=== PATIENT | female | born 1955 | race Caucasian/White ===

== ENCOUNTER 2016-08-05 09:52 | Emergency (ER) | payer OTHER ==
[~2016-08-05] VITALS: Ht 162.6 cm; Wt 46.7 kg
--- NOTE | 2016-08-05 10:01 | ED GENERAL ADULT ---
History of Present Illness General Chief Complaint: Palpitations Stated Complaint: PALPITATIONS X 2 WEEKS, GETTING WORSE Source: patient Exam Limitations: no limitations Vital Signs & Intake/Output Vital Signs & Intake/Output Vital Signs Date Time Temp Pulse Resp B/P B/P Pulse O2 O2 Flow FiO2 Mean Ox Delivery Rate 08/05 1319 97.4 62 15 141/85 100 Room Air Room Air 08/05 1016 Room Air Room Air 08/05 0957 97.9 81 16 147/86 95 Room Air Allergies Coded Allergies: Penicillins (Severe, HIVES, ITCHING 08/05/16) Reconcile Medications Levothyroxine Sodium 100 MCG TABLET 1 TAB PO DAILY AC THYROID (Reported) Triage Note: 61 Y/O FEMALE C/O L SIDED CHEST PAIN AND PALPITATIONS X FEW DAYS. STATES FEELS "LIKE MY HEART IS RACING". DENIES SOB. DENIES N/V/D. HR 80'S IN TRIAGE TAKEN TO ROOM FOR EKG/EVAL Triage Nurses Notes Reviewed? yes Onset: Abrupt Duration: day(s): Timing: recent history HPI: 08/05/16 This is a 61-year-old female presented to the emergency department for palpitations. The patient states that over the past week she's had intermittent episodes of feeling her heart racing. She denies irregular heartbeat. No chest pain but she did have some mild chest discomfort. No shortness of breath, no fever, no rash or tick bite. The onset of the symptoms have been abrupt, the duration has been approximately 7 days, the severity significant; as her symptoms required to come to the emergency department for care. She has associated palpitations and anxiety. Follow up with the Lead Database Developer this week Past History Travel History Traveled to [place] past 21 day No Medical History Any Pertinent Medical History? see below for history Neurological: NONE EENT: NONE Cardiovascular: NONE Respiratory: NONE Gastrointestinal: NONE Hepatic: NONE Renal: NONE Musculoskeletal: NONE Psychiatric: NONE Endocrine: hypothyroidism Blood Disorders: NONE Cancer(s): NONE PUMP TECHNICIAN/Reproductive: NONE Surgical History Surgical History: non-contributory Psychosocial History What is your primary language Indian Tobacco Use: Never used Family History Hx Contributory? No Review of Systems Review of Systems Constitutional: Denies: fever. EENTM: Reports: no symptoms. Respiratory: Denies: short of breath. Cardiovascular: Denies: chest pain. GI: Denies: abdominal pain. Genitourinary: Reports: no symptoms. Musculoskeletal: Reports: no symptoms. Skin: Denies: rash. Neurological/Psychological: Reports: anxiety. Hematologic/Endocrine: Reports: no symptoms. Physical Exam Physical Exam General Appearance: well developed/nourished, alert, awake, anxious, mild distress Head: atraumatic, normal appearance Eyes: Bilateral: normal appearance, PERRL, EOMI. Ears, Nose, Throat: normal pharynx, normal ENT inspection Neck: normal inspection, supple Respiratory: normal breath sounds, chest non-tender, no respiratory distress Cardiovascular: regular rate/rhythm Peripheral Pulses: 4+ radial (R), 4+ radial (L) Gastrointestinal: soft, non-tender Extremities: normal inspection, normal range of motion Neurologic/Psych: no motor/sensory deficits, awake, alert, oriented x 3, normal gait Skin: intact, normal color, warm/dry Core Measures ACS in differential dx? No CVA/TIA Diagnosis: No Severe Sepsis Present: No Septic Shock Present: No Progress Differential Diagnoses I considered the following diagnoses in my evaluation of the patient: [Acute coronary syndrome, pulmonary embolism, anxiety, valvular heart disease, hyperthyroidism, tachycardia dysrhythmia] Plan of Care: Orders Procedure Date/time Status Heart Healthy Diet 08/05 D Active TROPONIN LEVEL 08/05 1142 Complete EKG 08/05 1142 Active THYROID STIMULATING HORMONE 08/05 1022 Complete TROPONIN LEVEL 08/05 1022 Complete FREE T4 08/05 1022 Complete D-DIMER 08/05 1022 Complete COMPREHENSIVE METABOLIC PANEL 08/05 1022 Complete CBC WITHOUT DIFFERENTIAL 08/05 1022 Complete EKG 08/05 0953 Active Laboratory Tests 08/05/16 1231: Troponin I < 0.01 08/05/16 1144: D-Dimer < 200 08/05/16 1030: Anion Gap 12, Estimated GFR > 60, BUN/Creatinine Ratio 25.7 H, Glucose 110 H, Calcium 9.7, Total Bilirubin 0.3, AST 29, ALT 35, Alkaline Phosphatase 75, Troponin I < 0.01, Total Protein 7.2, Albumin 4.5, Globulin 2.7, Albumin/ Globulin Ratio 1.7, TSH 1.070, Free T4 1.71, CBC w Diff NO MAN DIFF REQ, RBC 4.41, MCV 90.5, MCH 31.0, RDW 12.9, MPV 9.1, Gran % 67.2, Lymphocytes % 18.0 L, Monocytes % 13.2 H, Eosinophils % 1.3, Basophils % 0.3, Absolute Granulocytes 2.7, Absolute Lymphocytes 0.7 L, Absolute Monocytes 0.5, Absolute Eosinophils 0.1, Absolute Basophils 0, PUBS MCHC 34.2 CXR NAPD (STEVE THOMPSON DO) Initial ED EKG: NSR Prior EKG: unchanged Repeat EKG: unchanged Departure Departure Disposition: STILL A PATIENT Condition: Stable Clinical Impression Primary Impression: Palpitations Referrals: PATIENT HAS NO PRIMARY CARE DR Departure Forms: Customer Survey General Discharge Information Comments 08/05/16 2:12 pm The patient has no chest pain in the emergency department. Her EKG is unchanged. Second troponin is negative. She will follow-up the business development specialist this week or return to the emergency department if worse. Critical Care Note Critical Care Note Critical Care Time: non-applicable
[2016-08-05] MEDS ORDERED: LEVOTHYROXINE100 MC1 PO (10:04)
[2016-08-05 10:42] LABS: ABSOLUTE BASOPHIL COUNT 0 /CUMM (0.0-0.2); ABSOLUTE EOSINOPHIL COUNT 0.1 /CUMM (0.0-0.7); ABSOLUTE GRANULOCYTE CT 2.7 /CUMM (1.4-6.5); ABSOLUTE LYMPH COUNT 0.7 /CUMM (1.2-3.4); ABSOLUTE MONOCYTE COUNT 0.5 /CUMM (0.10-0.60); BASOPHIL % 0.3 % (0.0-2.0); EOSINOPHIL % 1.3 % (0-5); GRANULOCYTE % 67.2 % (42.2-75.2); HEMATOCRIT 39.9 % (37-47); MEAN CORPUSCULAR HGB CONC 34.2 G/DL (33.0-37.0); MEAN CORPUSCULAR VOLUME 90.5 FL (81.0-99.0); MEAN PLATELET VOLUME 9.1 FL (7.4-10.4); PLATELET COUNT 212 /CUMM (130-400); RBC DISTRIBUTION WIDTH 12.9 % (11.5-14.5); RED BLOOD CELL CT 4.41 /CUMM (4.20-5.40)
--- NOTE | 2016-08-05 11:23 | RADIOLOGY REPORT ---
EXAMINATION: XR PORTABLE CHEST CLINICAL INFORMATION: Palpitations. Chest discomfort. COMPARISON: None TECHNIQUE: Portable frontal view of the chest was obtained. FINDINGS: The cardiomediastinal silhouette appears normal. The lungs are clear with possible hyperinflation. No consolidation, pulmonary edema, pleural effusion, or pneumothorax. No acute osseous abnormalities are visualized. IMPRESSION: No acute abnormality.
[2016-08-05 13:19] VITALS: BP 141/85
== END 2016-08-05 14:31 ==
LOC: ERH 09:52
PROVIDERS: Emergency Medicine
DX: R00.2 Palpitations (principal)
CPT/HCPCS: 93005; 93010